=== PATIENT | female | born 2000 | race Caucasian/White ===

== ENCOUNTER 2018-10-27 17:04 | Emergency (ER) | payer MEDICAID ==
[~2018-10-27] VITALS: Ht 162.6 cm; Wt 59.0 kg
[~2018-10-27 17:04] MED LIST: FERR325T17 PO; HYDR-3240 PO; IBUP-1223 PO; PNV11TAB5 PO; PREN1TAB28 PO
[2018-10-27 17:08] VITALS: BP 131/64
[2018-10-27 18:12] LABS: BASOPHILS # (AUTO) 0.01 x10^3/uL (0-0.3); BASOPHILS % (AUTO) 0 % (0-1); EOSINOPHILS # (AUTO) 0.04 x10^3/uL (0-0.8); EOSINOPHILS % (AUTO) 1 % (1-7); LYMPHOCYTES # (AUTO) 1.12 x10^3/uL (1-6.1); LYMPHOCYTES % (AUTO) 19 % (22-44); MD NO; MEAN CORPUSCULAR HEMOGLOBIN 28.8 pg (27.0-34.8); MEAN CORPUSCULAR HGB CONC 33.7 g/dL (32.4-35.8); MEAN CORPUSCULAR VOLUME 85.2 fL (80-100); MEAN PLATELET VOLUME 9.6 fL (7.4-10.4); MONOCYTES # (AUTO) 0.58 x10^3/uL (0-1.4); MONOCYTES % (AUTO) 10 % (2-9); NEUTROPHILS # (AUTO) 4.21 x10^3/uL (1.8-8.0); NEUTROPHILS % (AUTO) 71 % (42-75); PLATELET COUNT 209 x10^3/uL (130-400); RED BLOOD COUNT 4.88 x10^6/uL (3.82-5.3); RED CELL DISTRIBUTION WIDTH 13.6 % (9.6-15.2)
[2018-10-27 18:13] LABS: MICROSCOPIC NOT IND
[2018-10-27 18:15] LABS: CULTURE INDICATED? NO
[2018-10-27 18:25] LABS: ALANINE AMINOTRANSFERASE 21 U/L (12-78); ANION GAP 6 mmol/L (5-15); CALCIUM 8.9 mg/dL (8.5-10.1); CHLORIDE 108 mmol/L (98-107); CREATININE 0.66 mg/dL (0.55-1.02)
[2018-10-27 18:43] LABS: ALKALINE PHOSPHATASE 69 U/L (45-117); BILIRUBIN,TOTAL 0.3 mg/dL (0.2-1.0)
== END 2018-10-27 19:29 | disposition home or self-care (01) ==
LOC: ED 18:19
DX: O20.0 Threatened abortion (principal); Z3A.01 Less than 8 weeks gestation of pregnancy
CPT/HCPCS: 36415; 76801; 80053; 81003; 84702; 85025; 99284

== ENCOUNTER 2019-01-13 09:53 | Emergency (ER) | payer MEDICAID ==
[~2019-01-13] VITALS: Ht 162.6 cm; Wt 60.9 kg
[2019-01-13 10:00] VITALS: BP 106/59
[2019-01-13 11:49] LABS: CULTURE INDICATED? NO; MICROSCOPIC NOT IND
--- NOTE | 2019-01-13 11:50 | NUR ---
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
--- NOTE | 2019-01-13 11:52 | NUR ---
FROM LOBBY TO ULTRASOUND
[2019-01-13 12:09] LABS: ALANINE AMINOTRANSFERASE 19 U/L (12-78); ALBUMIN 3.5 g/dL (3.4-5.0); ANION GAP 6 mmol/L (5-15); CALCIUM 8.8 mg/dL (8.5-10.1); CHLORIDE 107 mmol/L (98-107); CREATININE 0.53 mg/dL (0.55-1.02)
[2019-01-13 12:26] LABS: ALKALINE PHOSPHATASE 55 U/L (45-117); BILIRUBIN,TOTAL 0.4 mg/dL (0.2-1.0)
[2019-01-13 12:27] LABS: TOTAL PROTEIN 6.6 g/dL (6.4-8.2)
[2019-01-13 12:32] LABS: MEAN CORPUSCULAR HEMOGLOBIN 28.7 pg (27.0-34.8); MEAN CORPUSCULAR HGB CONC 33.5 g/dL (32.4-35.8); MEAN CORPUSCULAR VOLUME 85.8 fL (80-100); MEAN PLATELET VOLUME 10.7 fL (7.4-10.4); PLATELET COUNT 97 x10^3/uL (130-400); RED BLOOD COUNT 4.75 x10^6/uL (3.82-5.3); RED CELL DISTRIBUTION WIDTH 13.5 % (9.6-15.2)
[2019-01-13 12:33] LABS: BASOPHILS # (AUTO) 0.01 x10^3/uL (0-0.3); BASOPHILS % (AUTO) 0 % (0-1); EOSINOPHILS # (AUTO) 0.02 x10^3/uL (0-0.8); EOSINOPHILS % (AUTO) 0 % (1-7); LYMPHOCYTES # (AUTO) 0.72 x10^3/uL (1-6.1); LYMPHOCYTES % (AUTO) 14 % (22-44); MD SCAN; MONOCYTES # (AUTO) 0.42 x10^3/uL (0-1.4); MONOCYTES % (AUTO) 8 % (2-9); NEUTROPHILS # (AUTO) 4.02 x10^3/uL (1.8-8.0); NEUTROPHILS % (AUTO) 78 % (42-75)
--- NOTE | 2019-01-13 12:38 | NUR ---
AFTER ULTRASOUND COMPLETED, MD AT BEDSIDE
== END 2019-01-13 12:55 | disposition home or self-care (01) ==
LOC: ED 12:31
DX: O26.892 Other specified pregnancy related conditions, second trimester (principal); R10.2 Pelvic and perineal pain; Z3A.16 16 weeks gestation of pregnancy
CPT/HCPCS: 36415; 76815; 80053; 81003; 84702; 85025; 86901; 99284

== ENCOUNTER 2019-02-06 19:18 | Emergency (ER) | payer MEDICAID ==
[~2019-02-06] VITALS: Ht 162.6 cm; Wt 60.4 kg
[2019-02-06] MEDS ORDERED: SODIUM CHLORIDE FLUSH 10ML SYR IVF ONE (20:00)
[2019-02-06] MEDS ORDERED: ONDANSETRON ODT 4 MG PO ONE (20:00)
[2019-02-06 20:08] LABS: ALBUMIN 3.7 g/dL (3.4-5.0); ANION GAP 10 mmol/L (5-15); CALCIUM 9.1 mg/dL (8.5-10.1); CHLORIDE 107 mmol/L (98-107)
[2019-02-06] MEDS ORDERED: ONDANSETRON ODT 4 MG ONE (20:08)
[2019-02-06 20:12] LABS: ALANINE AMINOTRANSFERASE 25 U/L (12-78); ALKALINE PHOSPHATASE 64 U/L (45-117); BILIRUBIN,TOTAL 0.8 mg/dL (0.2-1.0); CREATININE 0.61 mg/dL (0.55-1.02); TOTAL PROTEIN 7.1 g/dL (6.4-8.2)
[2019-02-06 20:22] LABS: BASOPHILS # (AUTO) 0.02 x10^3/uL (0-0.1); BASOPHILS % (AUTO) 0 % (0-1); EOSINOPHILS # (AUTO) 0.01 x10^3/uL (0-0.4); EOSINOPHILS % (AUTO) 0 % (1-7); LYMPHOCYTES # (AUTO) 0.29 x10^3/uL (1-3.4); LYMPHOCYTES % (AUTO) 3 % (22-44); MD NO; MEAN CORPUSCULAR HGB CONC 34.4 g/dL (32.4-35.8); MEAN CORPUSCULAR VOLUME 87.2 fL (80-100); MEAN PLATELET VOLUME 9.7 fL (7.4-10.4); MONOCYTES # (AUTO) 0.56 x10^3/uL (0.2-0.8); MONOCYTES % (AUTO) 5 % (2-9); NEUTROPHILS # (AUTO) 10.08 x10^3/uL (1.8-6.8); NEUTROPHILS % (AUTO) 92 % (42-75); PLATELET COUNT 172 x10^3/uL (130-400); RED BLOOD COUNT 4.81 x10^6/uL (3.82-5.3); RED CELL DISTRIBUTION WIDTH 13.7 % (9.6-15.2)
--- NOTE | 2019-02-06 20:32 | NUR ---
PT MEDICATED WITH PO ZOFRAN 4MG. AND GIVEN WATER FOR PO CHALLANGE INSTRUCTED PT TO WAIT 20 MINUTES BEFORE ATTEMPTING TO DRINK WATER.
--- NOTE | 2019-02-06 21:09 | NUR ---
PT ABLE TO KEEP WATER DOWN. REMAINS TO HAVE ABDOMINAL DISCOMFORT. PA AT BEDSIDE UPDATED ON PLAN OF CARE.
[2019-02-06] MEDS ORDERED: METOCLOPRAMIDE 5 MG/ML, 2ML IVPush ONE (21:30)
[2019-02-06] MEDS ORDERED: ACETAMINOPHEN 500 MG TABLET PO ONE (21:30)
[2019-02-06] MEDS ORDERED: DIPHENHYDRAMINE 25 MG CAPSULE PO ONE (21:30)
[2019-02-06] MEDS ORDERED: ACETAMINOPHEN 500 MG TABLET ONE (21:42)
[2019-02-06] MEDS ORDERED: METOCLOPRAMIDE 10MG TABLET ONE (21:42)
[2019-02-06] MEDS ORDERED: DIPHENHYDRAMINE 25 MG CAPSULE ONE (21:42)
[2019-02-06] MEDS ORDERED: METOCLOPRAMIDE 10MG TABLET PO ONE (22:00)
[2019-02-06 22:14] VITALS: BP 115/69
== END 2019-02-06 22:16 | disposition home or self-care (01) ==
LOC: ED 22:10
DX: O21.1 Hyperemesis gravidarum with metabolic disturbance (principal); R10.84 Generalized abdominal pain; Z3A.20 20 weeks gestation of pregnancy
CPT/HCPCS: 36415; 80053; 85025; 99284; Q0162; Q0163

== ENCOUNTER 2019-04-11 14:42 | Observation (INO) | payer MEDICAID ==
[~2019-04-11] VITALS: Ht 162.6 cm; Wt 68.0 kg
[~2019-04-11 14:42] MED LIST changes: +PROG200C2 PO
[2019-04-11 14:55] VITALS: BP 115/64
[2019-04-11 15:06] LABS: MICROSCOPIC NOT IND
[2019-04-11] MEDS ORDERED: NIFE10CA49 PO (15:28)
[2019-04-11] MEDS ORDERED: BETAMETHASONE 6 MG/ML, 5ML IM ONE ×2 (16:17→16:30)
[2019-04-11] MEDS ORDERED: ACETAMINOPHEN 325 MG TABLET PO PRN (19:00)
[2019-04-11] MEDS ORDERED: C PROGESTERONE VG SCH (23:30)
[2019-04-12] MEDS ORDERED: BETAMETHASONE 6 MG/ML, 5ML IM ONE (17:00)
== END 2019-04-12 16:44 | disposition home or self-care (01) ==
LOC: LDOP 14:42 → LDIP 17:39 → UNDOADMOB 17:50 → LDIP 17:50
PROVIDERS: ADMIT Obstetrics & Gynecology; ATTEND Obstetrics & Gynecology
DX: O26.873 Cervical shortening, third trimester (principal); O62.9 Abnormality of forces of labor, unspecified; Z3A.28 28 weeks gestation of pregnancy; Z79.899 Other long term (current) drug therapy
CPT/HCPCS: 76819; 81003; 87086; 96372; G0378; J0702; 59025; 99211; G0463

== ENCOUNTER 2019-04-15 20:57 | Observation (INO) | payer MEDICAID ==
[~2019-04-15 20:57] MED LIST changes: +NIFE10CA49 PO
== END 2019-04-16 03:00 | disposition home or self-care (01) ==
LOC: LDOP 20:57 → LDIP 23:00
PROVIDERS: ADMIT Obstetrics & Gynecology; ATTEND Obstetrics & Gynecology
DX: O36.8130 Decreased fetal movements, third trimester, not applicable or unspecified (principal); Z3A.29 29 weeks gestation of pregnancy
CPT/HCPCS: 59025; 76819; 99211; G0378; G0463

== ENCOUNTER 2019-04-29 16:02 | Observation (INO) | payer MEDICAID ==
[~2019-04-29] VITALS: Ht 162.6 cm; Wt 65.9 kg
[2019-04-29 16:36] LABS: MICROSCOPIC INDICATED
[2019-04-29 17:49] VITALS: BP 116/71
[2019-04-29] MEDS ORDERED: D5%-LACTATED RINGERS 500ML IVBOLUS ONE (18:00)
[2019-04-29] MEDS ORDERED: PLEASE ENTER HEIGHT AND WEIGHT MC SCH (18:00)
[2019-04-29] MEDS ORDERED: MAGNESIUM SULF. PMX 20GM/500ML 500 ML IV ONE (19:07)
[2019-04-29] MEDS ORDERED: MAGNESIUM SULFATE PMX 4GM/100M 100 ML ONE (19:07)
[2019-04-29 19:19] LABS: BASOPHILS # (AUTO) 0.02 x10^3/uL (0-0.1); BASOPHILS % (AUTO) 0 % (0-1); EOSINOPHILS # (AUTO) 0.02 x10^3/uL (0-0.4); EOSINOPHILS % (AUTO) 0 % (1-7); LYMPHOCYTES # (AUTO) 0.92 x10^3/uL (1-3.4); LYMPHOCYTES % (AUTO) 12 % (22-44); MD NO; MEAN CORPUSCULAR HEMOGLOBIN 29.5 pg (27.0-34.8); MEAN CORPUSCULAR HGB CONC 33.6 g/dL (32.4-35.8); MEAN CORPUSCULAR VOLUME 87.7 fL (80-100); MEAN PLATELET VOLUME 9.3 fL (7.4-10.4); MONOCYTES # (AUTO) 0.67 x10^3/uL (0.2-0.8); MONOCYTES % (AUTO) 9 % (2-9); NEUTROPHILS # (AUTO) 6.22 x10^3/uL (1.8-6.8); NEUTROPHILS % (AUTO) 79 % (42-75); PLATELET COUNT 121 x10^3/uL (130-400); RED BLOOD COUNT 3.89 x10^6/uL (3.82-5.3); RED CELL DISTRIBUTION WIDTH 12.9 % (9.6-15.2)
[2019-04-29] MEDS ORDERED: MAGNESIUM SULF. PMX 20GM/500ML 500 ML IV PRN (19:30)
[2019-04-29] MEDS ORDERED: MAGNESIUM SULFATE PMX 4GM/100M 100 ML IVPB ONE (19:30)
[2019-04-29 19:32] LABS: ALANINE AMINOTRANSFERASE 19 U/L (12-78); ALBUMIN 2.6 g/dL (3.4-5.0); ANION GAP 6 mmol/L (5-15); CALCIUM 8.1 mg/dL (8.5-10.1); CHLORIDE 109 mmol/L (98-107); CREATININE 0.54 mg/dL (0.55-1.02)
[2019-04-29 19:34] LABS: ALKALINE PHOSPHATASE 97 U/L (45-117); BILIRUBIN,TOTAL 0.3 mg/dL (0.2-1.0); TOTAL PROTEIN 5.7 g/dL (6.4-8.2)
[2019-04-29] MEDS: MAGNESIUM SULF. PMX 20GM/500ML 500 ML IV SCH (19:43)
[2019-04-29] MEDS ORDERED: ACETAMINOPHEN 325 MG TABLET ONE (19:49)
[2019-04-29] MEDS: ACETAMINOPHEN 325 MG TABLET PO PRN (19:50)
[2019-04-30] MEDS ORDERED: MAGNESIUM SULF. PMX 20GM/500ML 500 ML IV ONE (05:38)
[2019-04-30] MEDS ORDERED: ACETAMINOPHEN 325 MG TABLET ONE ×3 (05:41→13:31)
[2019-04-30] MEDS: MAGNESIUM SULF. PMX 20GM/500ML 500 ML IV SCH (05:42)
[2019-04-30] MEDS: ACETAMINOPHEN 325 MG TABLET PO PRN ×3 (05:42→13:33)
[2019-04-30] MEDS ORDERED: LACTATED RINGERS 1,000 ML IV PRN (05:49)
[2019-04-30] MEDS ORDERED: CALCIUM GLUCONATE 4.6 MEQ/10 ML IV PRN (06:00)
[2019-04-30] MEDS ORDERED: MAGNESIUM SULF. PMX 20GM/500ML 500 ML IV SCH (19:09)
[2019-05-01 11:47] VITALS: BP 112/58
[2019-05-01] MEDS ORDERED: SODIUM CHLORIDE FLUSH 10ML SYR IVF SCH (12:00)
== END 2019-05-01 13:35 | disposition home or self-care (01) ==
LOC: LDOP 16:02 → LDIP 17:33
PROVIDERS: ADMIT Obstetrics & Gynecology; ATTEND Obstetrics & Gynecology
DX: O26.893 Other specified pregnancy related conditions, third trimester (principal); R10.2 Pelvic and perineal pain; O26.873 Cervical shortening, third trimester; Z3A.31 31 weeks gestation of pregnancy
CPT/HCPCS: 36415; 59025; 76819; 80053; 81001; 83735; 85025; 86850; 86900; 87081; 87086; 87147; 96361; 96365; 96366; 99211; G0378; J3475; J7120; J7121; 96360; G0463

== ENCOUNTER 2019-05-22 17:00 | Outpatient (CLI) | payer MEDICAID ==
[~2019-05-22] VITALS: Ht 162.6 cm; Wt 72.7 kg
[2019-05-22 17:11] VITALS: BP 113/56
== END 2019-05-22 20:54 | disposition home or self-care (01) ==
LOC: LDOP 17:00
PROVIDERS: ATTEND Obstetrics & Gynecology
DX: O36.8130 Decreased fetal movements, third trimester, not applicable or unspecified (principal); Z3A.31 31 weeks gestation of pregnancy
CPT/HCPCS: 59025; 76819; 96360; 99211; J7120; G0463

== ENCOUNTER 2019-05-23 21:57 | Outpatient (CLI) | payer MEDICAID ==
[~2019-05-23] VITALS: Ht 162.6 cm; Wt 72.7 kg
== END 2019-05-23 23:02 | disposition home or self-care (01) ==
LOC: LDOP 21:57
PROVIDERS: ATTEND Obstetrics & Gynecology
DX: O26.893 Other specified pregnancy related conditions, third trimester (principal); R10.9 Unspecified abdominal pain; Z3A.35 35 weeks gestation of pregnancy
CPT/HCPCS: 59025; 81001; 99211; G0463

== ENCOUNTER 2021-06-05 07:46 | Emergency (ER) | payer MEDICAID, OTHER ==
[~2021-06-05] VITALS: Ht 162.6 cm; Wt 62.3 kg
[~2021-06-05 07:46] MED LIST changes: +HYDR-2214 PO; -HYDR-3240 PO; +PROG200C10 PO; -PROG200C2 PO
[2021-06-05 08:31] LABS: BASOPHILS % (AUTO) 1 % (0-1); EOSINOPHILS % (AUTO) 1 % (1-7); LYMPHOCYTES % (AUTO) 24 % (22-44); MEAN CORPUSCULAR HEMOGLOBIN 28.5 pg (27.0-34.8); MEAN CORPUSCULAR HGB CONC 33.7 g/dL (32.4-35.8); MEAN PLATELET VOLUME 9.3 fL (7.4-10.4); MONOCYTES % (AUTO) 9 % (2-9); NEUTROPHILS % (AUTO) 66 % (42-75); PLATELET COUNT 190 x10^3/uL (130-400); RED BLOOD COUNT 4.86 x10^6/uL (3.82-5.3); RED CELL DISTRIBUTION WIDTH 12.9 % (9.6-15.2)
[2021-06-05 08:39] LABS: ALBUMIN 4.1 g/dL (3.4-5.0); ANION GAP 6 mmol/L (5-15); CHLORIDE 108 mmol/L (98-107); CREATININE 0.68 mg/dL (0.55-1.02)
[2021-06-05 09:30] LABS: MICROSCOPIC NOT IND
[2021-06-05 11:15] VITALS: BP 124/74
== END 2021-06-05 11:16 | disposition home or self-care (01) ==
LOC: ED 09:11
DX: O20.0 Threatened abortion (principal); Z3A.01 Less than 8 weeks gestation of pregnancy
CPT/HCPCS: 36415; 76801; 80048; 81003; 82040; 84702; 85025; 99284